=== PATIENT | male | born 1950 | race Caucasian/White ===

== ENCOUNTER 2017-02-06 08:32 | Day surgery (SDC) | payer MEDICARE, OTHER ==
[2017-02-03 12:21] LABS: ASPARTATE AMINO TRANSFERASE 22 U/L (15-37); BLOOD UREA NITROGEN 14 mg/dL (7-18)
[~2017-02-06] VITALS: Ht 182.9 cm; Wt 98.9 kg
[~2017-02-06 08:32] MED LIST: AMLO5TAB2 PO; ASPI-496 PO; ATOR20TA PO; CHOL400T55 PO; CYCL-259 PO; HYDR-3237 PO; INSU100V8 SQ; LORA-633 PO; METF10002 PO; OMEP-110 PO; PIOG15TA22 PO; SAXA5TAB PO; VALS160T3 PO
[2017-02-06] MEDS ORDERED: LACTATED RINGERS 1,000 ML IV SCH (09:06)
[2017-02-06 09:11] VITALS: BP 167/108
[2017-02-06] MEDS ORDERED: FENTANYL PF 100 MCG/2ML ONE ×3 (09:11→11:41)
[2017-02-06] MEDS ORDERED: MIDAZOLAM 1 MG/ML, 2ML ONE (09:11)
[2017-02-06] MEDS ORDERED: BUPIVACAINE/PF 0.5% ONE (10:17)
[2017-02-06] MEDS ORDERED: EPINEPHRINE 1 MG/ML, 1ML ONE (10:17)
[2017-02-06] MEDS ORDERED: GLYCOPYRROLATE 0.2MG/1ML ONE (10:33)
[2017-02-06] MEDS ORDERED: ROCURONIUM 10 MG/ML ONE (10:33)
[2017-02-06] MEDS ORDERED: PROPOFOL 10 MG/ML, 20ML ONE (10:33)
[2017-02-06] MEDS ORDERED: NEOSTIGMINE 1 MG/ML, 10ML ONE (10:33)
[2017-02-06] MEDS ORDERED: CEFAZOLIN 1,000 MG ONE (10:33)
[2017-02-06] MEDS ORDERED: KETOROLAC 30 MG/1 ML ONE (10:33)
[2017-02-06] MEDS ORDERED: ONDANSETRON 2MG/ML, 2ML ONE ×2 (10:33→11:42)
[2017-02-06] MEDS ORDERED: EPHEDRINE 50 MG/ML, 1ML IVPush PRN (11:00)
[2017-02-06] MEDS ORDERED: MEPERIDINE/PF 25MG/0.5ML IVPush PRN (11:00)
[2017-02-06] MEDS ORDERED: ACETAMINOPHEN 325 MG TABLET PO PRN (11:00)
[2017-02-06] MEDS ORDERED: ONDANSETRON 2MG/ML, 2ML IVPush PRN (11:00)
[2017-02-06] MEDS ORDERED: MIDAZOLAM 1 MG/ML, 2ML IV PRN (11:00)
[2017-02-06] MEDS ORDERED: PROMETHAZINE 25 MG/ML, 1ML IV PRN (11:00)
[2017-02-06] MEDS ORDERED: ALBUTEROL SULFATE 2.5 MG/3 ML NPPB PRN (11:00)
[2017-02-06] MEDS ORDERED: LABETALOL 5MG/ML, 20ML IV PRN (11:00)
[2017-02-06] MEDS ORDERED: OXYcodone 5 MG/5 ML ORAL.SOL UDC PO PRN (11:00)
[2017-02-06] MEDS ORDERED: HYDROmorphone 1 MG/ML, 1ML IV PRN (11:00)
[2017-02-06] MEDS ORDERED: METOPROLOL 1 MG/ML, 5ML IV PRN (11:00)
[2017-02-06] MEDS ORDERED: METOCLOPRAMIDE 5 MG/ML, 2ML IV PRN (11:00)
[2017-02-06] MEDS ORDERED: hydrALAzine 20 MG/ML, 1ML IV PRN (11:00)
[2017-02-06] MEDS ORDERED: HYDROcodone/APAP 7.5-325MG/15ML UDC PO PRN (11:00)
[2017-02-06] MEDS ORDERED: ACETAMINOPHEN 325 MG TABLET ONE (11:41)
[2017-02-06] MEDS ORDERED: OXYcodone 5 MG/5 ML ORAL.SOL UDC ONE (11:42)
[2017-02-06] MEDS ORDERED: PROMETHAZINE 25 MG/ML, 1ML ONE (11:42)
[2017-02-06] MEDS: FENTANYL PF 100 MCG/2ML IV PRN ×3 (11:52→12:17)
== END 2017-02-06 14:45 | disposition home or self-care (01) ==
LOC: OUT 08:32
PROVIDERS: ATTEND Surgery
DX: K42.9 Umbilical hernia without obstruction or gangrene (principal); I10 Essential (primary) hypertension; E11.9 Type 2 diabetes mellitus without complications; K21.9 Gastro-esophageal reflux disease without esophagitis
CPT/HCPCS: 36415; 49585; 80053; 82962; 93005; C1781; J0171; J0690; J1885; J2250; J2405; J2550; J2704; J2710; J3010; J3490; J7120